=== PATIENT | male | born 1950 | race Caucasian/White ===

== ENCOUNTER 2017-06-01 21:15 | Observation (INO) | payer MEDICARE, OTHER ==
--- NOTE | 2017-06-01 21:37 | ERNOTE ---
Neuro HPI ER Record Presenting Symptoms: weakness, numbness - right arm since yesterday Time Seen by Provider: 06/01/17 21:19 Source: patient, family Exam Limitations: clinical condition Allergies/Adverse Reactions: Allergies Allergy/AdvReac Type Severity Reaction Status Date / Time ciprofloxacin [From Cipro] AdvReac Verified 06/01/17 21:22 metronidazole [From Flagyl] AdvReac Verified 06/01/17 21:22 Home Medications: HOME MEDICATIONS Aspirin [Aspirin EC] 243 mg PO HS 06/01/17 [Last Taken Unknown] Gabapentin [Neurontin] 1,200 mg PO TID 06/01/17 [Last Taken Unknown] Tiotropium [place] [Spiriva] 1 cap IH DAILY 06/01/17 [Last Taken Unknown] - History of Present Illness Narrative: Pt states that he was seen at the [facility] on the day before yesterday for spasm in his right hand. Since that time he states the right arm has become flaccid and intermittently begins shaking and contracts in flexion for approx 1 minute then stops suddenly. He states that while his right hand is shaking and manohar he is unable to move his left arm. Onset: gradual onset - over the past 3 days Severity: severe - Character of Deficits New weakness: Present: RUE Altered sensation: Present: RUE Additional Deficits: Present: decrease ability to stand, off balance. Absent: vision problems Baseline Cognition: Present: alert, oriented x 4 Baseline Gait: Present: walks w/o assistance Prior Treament: Reports: recently seen, treated by physician - At the [facility] in [place] on the day before yesterday Review of Systems - Review of Systems Constitutional: Absent: recent illness, fever, chills EYE: Present: no symptoms reported ENT: Present: no symptoms reported Respiratory: Present: no symptoms reported Cardiology: Present: no symptoms reported Gastrointestinal/Abdominal: Present: no symptoms reported Musculoskeletal: Present: muscle pain, muscle stiffness - right arm intermittantly Skin: Present: no symptoms reported Neurological: Present: See HPI, seizure - -like activity in his right arm Endocrine: Present: excessive sweating, increased thirst Hematologic/Lymphatic: Present: no symptoms reported Psych: Present: no symptoms reported - Patient's Past Medical History Patient History - Medical: Diabetes Type 2 Patient History - Cardiac/Respiratory: COPD - Family History Father Family History - Medical: , No pertinent hx Family History - Cardiac/Respiratory: Other Family History - Cancer: Other Physical Exam - Physical Exam General Appearance: Present: wd/wn, alert, mild distress Eye Exam: Normal inspection: bilateral, PERRL: bilateral Neck: Present: normal inspection, supple Respiratory: Present: no respiratory distress, normal breath sounds, lungs clear Cardiovascular/Chest: Present: regular rate, rhythm, no murmur Extremity Exam: Present: normal inspection, non-tender Neurological Exam: Present: alert, oriented, normal mood/affect, 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 II-XII nml as tested, motor weakness - right arm with anesthesia from shoulder , other - intermittant contracture and tremor of right arm that lasts 40-60 seconds at a time Skin Exam: Present: normal color, warm/dry [place] Coma Scale - Assess Eye Opening: Spontaneous Motor: Obeys Commands Verbal: Oriented - Total Coma Scale Total: 15 Initial Stroke Assessment - NIH Stroke Scale Level of Consciousness: Alert LOC Questions (Year and Age): Answers both correctly LOC Commands (open/close eyes/fist): Performs both correctly Lateral Gaze Paresis: None Visual Field Loss: No visual loss Facial Palsy: Normal movement Right Arm Motor (10 sec hold): No movement Left Arm Motor (10 sec hold): No drift ED Progress - Results and Orders Patient's Lab Results:: I have reviewed the patient's lab results. Results and Orders: Laboratory Tests 06/01/17 06/01/17 06/01/17 21:20 21:20 21:20 WBC 3.3 L Hgb 12.7 L Hct 34.8 L Plt Count 213 ESR 53 H Sodium 137 Potassium 4.6 Chloride 97 Carbon Dioxide 27.7 Anion Gap 16.9 H BUN 13 Creatinine 0.86 Est GFR (Non-Af Amer) 94 BUN/Creatinine Ratio 15.1 Random Glucose 691 H* Calcium 8.4 Total Bilirubin 1.2 H AST 24 ALT 35 Alkaline Phosphatase 106 Total Protein 5.5 L Albumin 3.1 L Urine Color Urine Appearance Urine pH Ur Specific [place] Urine Protein Urine Glucose (UA) Urine Ketones Urine Blood Urine Nitrate Urine Bilirubin Urine Urobilinogen Ur Leukocyte Esterase Urine RBC Urine WBC Ur Epithelial Cells Urine Bacteria Urine Culture Comments Urine Opiates Screen Barbiturate Screen Ur Phencyclidine Scrn Urine Amphetamine U Benzodiazepines Scrn Urine Cocaine Screen Urine Marijuana (THC) 06/01/17 06/01/17 21:45 21:59 WBC Hgb Hct Plt Count ESR Sodium Potassium Chloride Carbon Dioxide Anion Gap BUN Creatinine Est GFR (Non-Af Amer) BUN/Creatinine Ratio Random Glucose Calcium Total Bilirubin AST ALT Alkaline Phosphatase Total Protein Albumin Urine Color Yellow Urine Appearance Clear Urine pH 5.5 Ur Specific [place] 1.005 Urine Protein Negative Urine Glucose (UA) >=1000 H Urine Ketones 15 Urine Blood Negative Urine Nitrate Negative Urine Bilirubin Negative Urine Urobilinogen Normal Ur Leukocyte Esterase Negative Urine RBC None seen Urine WBC 0-5 Ur Epithelial Cells 0-5 Urine Bacteria None seen Urine Culture Comments No culture indicated Urine Opiates Screen Positive H Barbiturate Screen Negative Ur Phencyclidine Scrn Negative Urine Amphetamine Negative U Benzodiazepines Scrn Negative Urine Cocaine Screen Negative Urine Marijuana (THC) Positive H - Vital Signs Patient's Vital Signs:: I have reviewed the patient's vital signs. Vital Signs: Vital Signs 06/01/17 21:15 Temperature 36.8 C Pulse Rate 92 Respiratory 19 Rate Blood Pressure 158/94 O2 Sat by Pulse 97 Oximetry - EKG EKG: NSR EKG read: Interp. by me - X-Ray X-Ray #1 X-Ray: chest Interpretation: Interp. by me X-ray Comments: Nothing acute, no infiltrate or edema. - CT/Ultrasound CT/Ultrasound Narrative: motion artifact. Post. Subq metallic foreign bodies. mild atrophy and chronic white matter ischemic changes min. mucosal thickening b/l ethmoid air cells. - Progress/Reassessment Progress:: Improved Progress Note-Subjective: 06/02/17 01:30 spoke with Nena CONTRERASP hospitalist. She agrees with observation admission to watch glucose and arm strength. While talking to patient about admission. He began to use the right arm somewhat, lifting it up and even hitting himself on the forehead twice. Departure Clinical Impression: Uncontrolled type 2 DM with hyperosmolar nonketotic hyperglycemia, Right arm weakness - Departure Disposition: [facility] Condition: Stable
--- OUTSIDE RECORDS SUMMARY | 2017-06-01 21:40 | XMS REPORT | Continuity of Care Document ---
:1950 Author Organization [employer] [place] [address] Care Team Providers Name Role Phone Sumit Jax Guerin Primary Care Provider [phone] Source Comments This disclosure is being made pursuant to the [employer] ([employer]) program and maynot contain all information available regarding this patient.[employer] Active Allergies and Adverse Reactions Allergen Noted Date Severity Reactions Comments Ciprofloxacin 05/25/2017 High Hives Flagyl 05/25/2017 High Hives Shellfish Allergy 05/25/2017 High Anaphylaxis Current Medications Be aware that medications may not be up to date as of this document. Alwaysverify current medications with the patient. Prescription Sig. Disp. Refills Start Date End Date Status gabapentin Take 2 180 tablet 2 05/26/2017 Active (NEURONTIN) 600 MG tablets by tablet mouth 3 (three) times daily. tiotropium Place 1 30 capsule 2 05/26/2017 Active (SPIRIVA) 18 MCG capsule into inhalation capsule inhaler and inhale daily. Inhale 1 capsule via inhaler by mouth every day (use with inhaler, do not swallow capsule). gabapentin Take 600 mg 05/25/2017 Discontinued (NEURONTIN) 600 MG by mouth 3 tablet (three) times daily. tiotropium Inhale 1 05/25/2017 Discontinued (SPIRIVA) 18 MCG capsule via inhalation capsule inhaler by mouth every day (use with inhaler, do not swallow capsule). tiotropium Place 1 30 capsule 2 05/25/2017 05/26/2017 Discontinued (SPIRIVA) 18 MCG capsule into inhalation capsule inhaler and inhale daily. Inhale 1 capsule via inhaler by mouth every day (use with inhaler, do not swallow capsule). gabapentin Take 2 180 tablet 2 05/25/2017 05/26/2017 Discontinued (NEURONTIN) 600 MG tablets by tablet mouth 3 (three) times daily. 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2 C (97.2 F) 05/25/2017 2:11 PM CDT Respiratory Rate - - Height 1.88 m (6' 2") 05/25/2017 2:11 PM CDT Weight 118.389 kg (261 lb) 05/25/2017 2:11 PM CDT Body Mass Index 33.5 05/25/2017 2:11 PM CDT Oxygen Saturation 92% 05/25/2017 2:11 PM CDT Plan of Care Health Maintenance Due Date Last Done Comments Hepatitis C Screening 1968 Tetanus/Pertussis (1 - Tdap) 1969 Colonoscopy 2000 Well Adult Visit 2000 Zoster Vaccine 60+ 2010 AAA Screening (Medicare Covered) 2015 Pneumococcal Low/Medium Risk 65+ (1 of 2 - PCV13) 2015 Influenza Immunization (#1) 2016 Results from Last 3 Months Not on file Insurance Payer Benefit Plan / Group Subscriber ID Type Phone Address [place] [employer] PROGRAM [id number] [address] [place] [address] MEDICARE MEDICARE A AND B [id number] [id number] [address] [place] [address]
[2017-06-01 21:58] LABS: Hematocrit 34.8 % (42.0-52.0); Hemoglobin 12.7 gm/dL (13.5-18.0); Mean Cell Volume 91.6 fl (78-100); Mean Corpuscular Hemoglobin 33.4 pg (27-31); Mean Corpuscular Hgb Conc 36.5 g/dl (32-36); Mean Platelet Volume 10.6 fl (6.0-9.5); Neutrophil # 1.7 K/mm3 (1.3-6.0); Platelet Count 213 K/mm3 (150-450); Red Cell Distribution Width 13.6 % (11.5-14.0); White Blood Count 3.3 K/mm3 (4.0-10.5)
[2017-06-01 22:06] LABS: Urine Appearance Clear; Urine Bilirubin Negative (NEGATIVE); Urine Blood Negative /ul (NEGATIVE); Urine Color Yellow
[2017-06-01 22:07] LABS: Urine Bacteria None Seen; Urine Ketone 15 mg/dL (NEGATIVE); Urine Nitrite Negative (NEGATIVE); Urine Protein Negative (NEGATIVE); Urine RBC None Seen /hpf (0-5); Urine Specific Gravity 1.005 SP.GR. (1.005-1.030); Urine Urobilinogen Normal (NORMAL); Urine WBC 0-5 /hpf (0-5); Urine pH 5.5 pH (5.0-7.0)
[2017-06-01 22:14] LABS: Cocaine Ur Negative (NEGATIVE); Urine Barbiturate Negative (NEGATIVE); Urine Benzodiazepines Negative (NEGATIVE); Urine PCP Negative (NEGATIVE)
[2017-06-01 22:34] LABS: Urine Opiates Positive (NEGATIVE); Urine THC Positive (NEGATIVE)
[2017-06-01 23:09] LABS: BUN/Creatinine Ratio 15.1 (9.0-21.6); Potassium 4.6 mmol/L (3.4-4.6)
[2017-06-01 23:10] LABS: Albumin * 3.1 gm/dl (3.4-5.0); Anion Gap 16.9 mmol/L (6.8-13.8); Bilirubin, Total 1.2 mg/dL (0.0-1.1); Ca. Corrected For Albumin 8.8 mg/dL (8.4-10.2); Calcium * 8.4 mg/dL (7.9-10.9); Carbon Dioxide 27.7 mmol/L (24-32.6); Total Protein 5.5 gm/dL (6.2-8.2)
--- OUTSIDE RECORDS SUMMARY | 2017-06-02 01:52 | XMS REPORT | Continuity of Care Document ---
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
[2017-06-02] MEDS ORDERED: 0.5 NORMAL SALINE 1,000 ML IV PRN ×2 (03:17→03:38)
--- NOTE | 2017-06-02 03:42 | HP ---
Chief Complaint - Chief Complaint Date of Service: 06/02/17 Time of Service: 03:15 Chief Complaint: right arm weakness, Diabetes type 2 with hyperglycemia. History of Present Illness: Andi is a 67 year old male patient of the [facility] with a PMH of non-compliant Diabetes type 2, diabetic neuropathy, history of FL with prior angiogram (no intervention per patient) that presented to the ER tonight with c/o right arm numbness and weakness x 1 week and frequent falls. States 1 week ago he developed right wrist pain. Over the course of the last week, the right wrist pain progressed and has started to move up his right arm. In the last 3 days, patient states he has started to have frequent, uncontrollable and painful right arm spasms. The patient also fell 3 days ago and hit right shoulder. This prompted him to present to the [facility] emergency room 3 days ago for evaluation. Per patient, his blood sugar was elevated at 700 at the [facility] ER and he was released with scripts for his diabetic medications. However, patient states to me that he has not taken any of his diabetic medications for the past 2 years, since his . states he does not want to take metformin as it makes his feet swell. In addition, patient directly states to me that [facility] 2600 [facility] of gab[facility]entin but he is still taking the previously ordered dose of 3600 mg a day as he feels it does a better job. When the patient has right arm spasms, he denies LOC and is able to converse during the episodes. He also denies any s/s of post-ictal states after the right arm spasms - either here or outside of the hospital. Today, the patient states he has felt very off balance and the right arm spasms have increased in intensity and frequency. This prompted evaluation at [facility] ER. ER evaluation revealed non acute head CT, serum glucose 691, anion gap high at 16.9, EKG showing NSR with no acute st-t wave changes, and non acute chest xray. Patient to be admitted for hyperglycemia and right arm pain / spasms. - Patient's Past Medical History Patient History - Medical: Diabetes Type 2 Patient History - Cardiac/Respiratory: COPD, Myocardial Infarction Patient History - Cancer: No Hx of Cancer Patient History - Surgical Procedures: Total Knee Replacement, Other - angiogram Patient History - Other: None - Family History Father Family History - Medical: , No pertinent hx Family History - Cardiac/Respiratory: Other Family History - Cancer: Other - Social History Living Situations: alone Psych History: Hx of Anxiety, Hx of Depression Smoking Status: Former smoker Have you smoked in the past 12 months: No Alcohol Use: none Drug Use: marijuana - Immunizations Immunizations Up to Date: No - UNK Hx Pneumococcal Vaccination: Yes History of Influenza Vaccine: No Review Of Systems (GEN) - Review of Systems Generalized/Overall Review: Absent: Chills, Fever EENTM: Present: No Symptoms Reported Respiratory: Present: No Symptoms Reported Cardiac: Present: No Symptoms Reported Abdominal: Present: No Symptoms Reported Genitourinary: Present: No Symptoms Reported Musculoskeletal: Present: Muscle Pain, Other - right arm spasms / right arm muscle contractures (intermittent) Neurological: Present: Anxiety, Depressed, Emotional Problems, Numbness, Weakness, Other - intermittent right arm spasms Skin: Present: No Symptoms Reported Endocrine: Present: Excessive Sweating, Increased Thirst Misc: All systems neg except as marked Allergies/Adverse Reactions: Allergies Allergy/AdvReac Type Severity Reaction Status Date / Time ciprofloxacin [From Cipro] AdvReac Verified 06/01/17 21:22 metronidazole [From Flagyl] AdvReac Verified 06/01/17 21:22 Home Medications: HOME MEDICATIONS Aspirin [Aspirin EC] 243 mg PO HS 06/01/17 [Last Taken Unknown] Gabapentin [Neurontin] 1,200 mg PO TID 06/01/17 [Last Taken Unknown] Tiotropium [place] [Spiriva] 1 cap IH DAILY 06/01/17 [Last Taken Unknown] Exam - Exam Vital Signs: Vital Signs - Last Taken Temp 36.3 C L 06/02/17 02:16 Pulse 83 06/02/17 02:16 Resp 18 06/02/17 02:16 BP 152/88 06/02/17 02:16 Pulse Ox 97 06/02/17 02:16 Constitutional: Present: Alert, Oriented x3, Cooperative, No distress, Obese, Looks Older than stated age ENT Exam: Present: hearing grossly normal Eye Exam: bilateral eye: normal inspection, PERRL Neck: Present: supple, normal inspection Breasts: Present: Exam deferred Respiratory: Present: chest non-tender, lungs clear, normal breath sounds, no respiratory distress, no accessory muscle use Cardiovascular/Chest: Present: normal peripheral pulses, regular rate, rhythm, no chest tenderness, no murmur Abdomen: Present: Normal bowel sounds, soft, nontender, nondistended /Rectal: Present: Exam deferred Extremity: Present: normal inspection, no calf tenderness Skin Exam: Present: warm/dry, no cyanosis Neurologic: Present: 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 However sensation returns once the right arm spasm is over. Appearance: Present: disheveled Eye contact: Present: good eye contact, increased rate of speech Diagnostic Studies: Abnormal Lab Results 06/02/17 Range/Units 02:47 Total CO2 25.1 H (19.0-24.0) mmol/L Laboratory Results WBC 3.3 K/mm3 (4.0-10.5) L 06/01/17 21:20 RBC 3.80 M/mm3 (4.7-6.0) L 06/01/17 21:20 Hgb 12.7 gm/dL (13.5-18.0) L 06/01/17 21:20 Hct 34.8 % (42.0-52.0) L 06/01/17 21:20 MCV 91.6 fl (78-100) 06/01/17 21:20 MCH 33.4 pg (27-31) H 06/01/17 21:20 MCHC 36.5 g/dl (32-36) H 06/01/17 21:20 RDW 13.6 % (11.5-14.0) 06/01/17 21:20 Plt Count 213 K/mm3 (150-450) 06/01/17 21:20 MPV 10.6 fl (6.0-9.5) H 06/01/17 21:20 Immature Gran % (Auto) 0.60 % (0.001-0.429) H 06/01/17 21:20 Immature Gran # (Auto) 0.02 K/mm3 (0.000-0.0310) 06/01/17 21:20 Neutrophils % 51.0 % (42-75.0) 06/01/17 21:20 Lymphocytes % 32.2 % (20-51) 06/01/17 21:20 Monocytes % 12.3 % (0.0-9) H 06/01/17 21:20 Eosinophils % 3.0 % (0.0-3.0) 06/01/17 21:20 Basophils % 0.9 % (0.0-1.0) 06/01/17 21:20 Nucleated RBC % 0.0 k/mm3 (0-1) 06/01/17 21:20 Neutrophils # 1.7 K/mm3 (1.3-6.0) 06/01/17 21:20 Lymphocytes # 1.1 k/mm3 (1.5-3.5) L 06/01/17 21:20 Monocytes # 0.4 k/mm3 (0.0-1.0) 06/01/17 21:20 Eosinophils # 0.1 k/mm3 (0.0-0.7) 06/01/17 21:20 Absolute Basophils 0.0 k/mm3 (0.0-0.1) 06/01/17 21:20 ESR 53 mm/hr (0-10) H 06/01/17 21:20 pCO2 36.8 mmHg (35.0-48.0) 06/02/17 02:47 pO2 84.9 mmHg (83.0-108.0) 06/02/17 02:47 HCO3 23.9 mmol/L (21.0-28.0) 06/02/17 02:47 Total CO2 25.1 mmol/L (19.0-24.0) H 06/02/17 02:47 Base Excess -0.1 mmol/L (-2.0-3.0) 06/02/17 02:47 ABG pH 7.43 (7.35-7.45) 06/02/17 02:47 ABG O2 Sat (Measured) 96.7 % (94.0-98.0) 06/02/17 02:47 VBG pH 7.422 (7.32-7.43) 06/02/17 00:47 Sodium 137 mmol/L (132-142) 06/01/17 21:20 Plasma Sodium 146 mmol/L (130-142) H 06/01/17 21:20 Potassium 4.6 mmol/L (3.4-4.6) 06/01/17 21:20 Chloride 97 mmol/L (97-106) 06/01/17 21:20 Carbon Dioxide 27.7 mmol/L (24-32.6) 06/01/17 21:20 Anion Gap 16.9 mmol/L (6.8-13.8) H 06/01/17 21:20 BUN 13 mg/dL (6-23) 06/01/17 21:20 Creatinine 0.86 mg/dL (0.4-1.4) 06/01/17 21:20 Est GFR (Non-Af Amer) 94 mL/min (60-130) 06/01/17 21:20 BUN/Creatinine Ratio 15.1 (9.0-21.6) 06/01/17 21:20 Random Glucose 691 mg/dL (70-110) H* 06/01/17 21:20 Calcium 8.4 mg/dL (7.9-10.9) 06/01/17 21:20 Calcium Adj for Albumin 8.8 mg/dL (8.4-10.2) 06/01/17 21:20 Total Bilirubin 1.2 mg/dL (0.0-1.1) H 06/01/17 21:20 AST 24 U/L (0-48) 06/01/17 21:20 ALT 35 U/L (19-67) 06/01/17 21:20 Alkaline Phosphatase 106 U/L (50-170) 06/01/17 21:20 Total Protein 5.5 gm/dL (6.2-8.2) L 06/01/17 21:20 Albumin 3.1 gm/dl (3.4-5.0) L 06/01/17 21:20 Urine Color Yellow 06/01/17 21:59 Urine Appearance Clear 06/01/17 21:59 Urine pH 5.5 pH (5.0-7.0) 06/01/17 21:59 Ur Specific [place] 1.005 SP.GR. (1.005-1.030) 06/01/17 21:59 Urine Protein Negative mg/dL (NEGATIVE) 06/01/17 21:59 Urine Glucose (UA) >=1000 mg/dL (NEGATIVE) H 06/01/17 21:59 Urine Ketones 15 mg/dL (NEGATIVE) 06/01/17 21:59 Urine Blood Negative /ul (NEGATIVE) 06/01/17 21:59 Urine Nitrate Negative (NEGATIVE) 06/01/17 21:59 Urine Bilirubin Negative mg/dl (NEGATIVE) 06/01/17 21:59 Urine Urobilinogen Normal EU/dl (NORMAL) 06/01/17 21:59 Ur Leukocyte Esterase Negative /ul (NEGATIVE) 06/01/17 21:59 Urine RBC None seen /hpf (0-5) 06/01/17 21:59 Urine WBC 0-5 /hpf (0-5) 06/01/17 21:59 Ur Epithelial Cells 0-5 /hpf (0-5) 06/01/17 21:59 Urine Bacteria None seen (NONE) 06/01/17 21:59 Urine Culture Comments No culture indicated 06/01/17 21:59 Urine Opiates Screen Positive (NEGATIVE) H 06/01/17 21:45 Barbiturate Screen Negative (NEGATIVE) 06/01/17 21:45 Ur Phencyclidine Scrn Negative (NEGATIVE) 06/01/17 21:45 Urine Amphetamine Negative (NEGATIVE) 06/01/17 21:45 U Benzodiazepines Scrn Negative (NEGATIVE) 06/01/17 21:45 Urine Cocaine Screen Negative (NEGATIVE) 06/01/17 21:45 Urine Marijuana (THC) Positive (NEGATIVE) H 06/01/17 21:45 Assessment/Plan - Narrative Narrative: Uncontrolled type 2 diabetes with hyperosmolar nonketotic hyperglycemia - serum osmolarity calculated at 335 - hydrate with IVF - 1/2NS given elevated Na+ - per recyclable materials collector, patient's blood drawn contained a high amount of fat - thus some tests that could not be diluted were unable to be done in the ER because of this. - ie: unable to obtain serum ketones due to this as high fat content can skew the results but urine ketones negative. - check ABG - Start levamier - dose at 0.1 to 0.2 units / kg / day - start 15 units daily given obesity - accu-check achs with moderate sliding scale as needed. - recheck labs in am. - ? start glyburide - patient has taken this in the past and tolerated - patient unlikely to take metformin due to side effects. - needs close follow up with pcp. Right arm weakness - unclear etiology, - ? seizure like vs muscle spasms vs other neurological condition ? - given recent fall with injury to right shoulder, per pt, check right shoulder xray as a precaution - head ct is non acute - check ck levels as these would be elevated if his right arm spasms were due to a true seizure - patient is VERY inconsistent with history behind and current symptoms of right arm - states to me that he cannot move right arm at all, however both ERP and floor RN have seen patient move right arm. - [facility] - will likely need outpatient follow up with neurologist non-compliance - recently moved to the area 3 months ago - per floor RN, patient has seen providers in [place] and other nearby areas since his arrival here but has yet to establish with a pcp for ongoing treatment. - unsure if [facility] [place] - per patient, non compliance is due to depression after of 2 years ago - ? anti-depressant. depression - openly admits to being depressed but is on no treatment - ? start antidepressant - would likely benefit from outpatient treatment of depression, both medication and counseling, if patient is willing. Code Status: DNR VTE: lovenox gi proph: protonix po. - Assessment/Plan (1) Uncontrolled type 2 DM with hyperosmolar nonketotic hyperglycemia Problem: Acute (2) Right arm weakness Problem: Acute (3) Non compliance w medication regimen Problem: Acute (4) Depression Problem: Acute
[2017-06-02] MEDS ORDERED: ASPIRIN 81 MG TABLET.DR PO SCH (03:45)
[2017-06-02] MEDS: INSULIN DETEMIR 100 UNITS/ML VIAL SC SCH ×4 (03:54→21:21)
[2017-06-02 06:44] LABS: Hematocrit 34.5 % (42.0-52.0); Hemoglobin 12.1 gm/dL (13.5-18.0); Mean Cell Volume 91.8 fl (78-100); Mean Corpuscular Hemoglobin 32.2 pg (27-31); Mean Corpuscular Hgb Conc 35.1 g/dl (32-36); Mean Platelet Volume 10.1 fl (6.0-9.5); Neutrophil # 2.1 K/mm3 (1.3-6.0); Neutrophil % 52.3 % (42-75.0); Platelet Count 182 K/mm3 (150-450); Red Blood Count 3.76 M/mm3 (4.7-6.0); Red Cell Distribution Width 13.6 % (11.5-14.0); White Blood Count 4.1 K/mm3 (4.0-10.5)
[2017-06-02] MEDS: PANTOPRAZOLE SODIUM 40 MG TABLET.EC PO SCH (07:02)
[2017-06-02] MEDS: INSULIN LISPRO 100 UNITS/ML VIAL SC SCH ×4 (07:02→21:21)
[2017-06-02 07:10] LABS: Anion Gap 6.3 mmol/L (6.8-13.8); BUN/Creatinine Ratio 12.9 (9.0-21.6); CKMB 1.5 ng/mL (0.0-9.0); Carbon Dioxide 28.3 mmol/L (24-32.6); Estimated Creat Clear 119.1; Potassium 3.6 mmol/L (3.4-4.6)
[2017-06-02] MEDS ORDERED: GABAPENTIN 300 MG CAPSULE PO SCH (09:00)
[2017-06-02] MEDS: NORMAL SALINE 1,000 ML IV PRN ×2 (09:22→16:04)
[2017-06-02] MEDS: TIOTROPIUM BROMIDE 5 CAP INHALER IH SCH (09:23)
[2017-06-02] MEDS: GABAPENTIN 600 MG TABLET PO SCH ×3 (09:24→16:11)
[2017-06-02] MEDS: ASPIRIN 81 MG TABLET.DR PO SCH (09:25)
[2017-06-02] MEDS: SERTRALINE HCL 50 MG TABLET PO SCH (09:25)
[2017-06-02] MEDS: ENOXAPARIN SODIUM 40 MG/0.4 ML SYRG SC SCH (09:25)
[2017-06-02] MEDS ORDERED: GLIMEPIRIDE 4 MG TABLET PO SCH (09:30)
[2017-06-02] MEDS: GLIMEPIRIDE 4 MG TABLET PO SCH ×2 (09:57→16:11)
[2017-06-02 14:33] LABS: Hemoglobin A1C 14.5 % (4.00-6.0)
[2017-06-02 14:48] LABS: Anion Gap 11.5 mmol/L (6.8-13.8); BUN/Creatinine Ratio 12.9 (9.0-21.6); Calcium * 8.3 mg/dL (7.9-10.9); Carbon Dioxide 26.3 mmol/L (24-32.6); Estimated Creat Clear 119.1; Potassium 3.8 mmol/L (3.4-4.6)
[2017-06-02] MEDS ORDERED: ROSUVASTATIN CALCIUM 20 MG TABLET PO SCH (21:00)
[2017-06-03] MEDS: ACETAMINOPHEN 325 MG TABLET PO PRN ×2 (05:54)
[2017-06-03 06:33] LABS: Albumin * 2.4 gm/dl (3.4-5.0); Anion Gap 10.5 mmol/L (6.8-13.8); BUN/Creatinine Ratio 10.5 (9.0-21.6); Bilirubin Direct 0.1 mg/dL (0.0-0.3); Bilirubin, Total 0.3 mg/dL (0.0-1.1); Bilirubin,Indirect 0.2 mg/dL (0.1-0.7); Calcium * 8.4 mg/dL (7.9-10.9); Chol/HDL Risk Ratio 9.1 mg/dL (3.3-5.0); Estimated Creat Clear 146.2; Potassium 3.5 mmol/L (3.4-4.6); Total Protein 5.6 gm/dL (6.2-8.2)
[2017-06-03] MEDS: GLIMEPIRIDE 4 MG TABLET PO SCH ×2 (06:55→17:12)
[2017-06-03] MEDS: PANTOPRAZOLE SODIUM 40 MG TABLET.EC PO SCH (06:55)
[2017-06-03] MEDS: INSULIN LISPRO 100 UNITS/ML VIAL SC SCH ×3 (07:00→17:12)
[2017-06-03] MEDS: ASPIRIN 81 MG TABLET.DR PO SCH (09:23)
[2017-06-03] MEDS: GABAPENTIN 600 MG TABLET PO SCH ×3 (09:23→17:12)
[2017-06-03] MEDS: SERTRALINE HCL 50 MG TABLET PO SCH (09:24)
[2017-06-03] MEDS: ENOXAPARIN SODIUM 40 MG/0.4 ML SYRG SC SCH (09:24)
[2017-06-03] MEDS: TIOTROPIUM BROMIDE 5 CAP INHALER IH SCH (09:24)
[2017-06-03] MEDS: INSULIN DETEMIR 100 UNITS/ML VIAL SC SCH (09:32)
--- NOTE | 2017-06-03 13:01 | DS ---
(1) Uncontrolled type 2 DM with hyperosmolar nonketotic hyperglycemia Problem: Acute (2) Hemiballism Problem: Acute (3) Depression Problem: Chronic Qualifiers: Depression Type: major depressive disorder Major depression recurrence: single episode Active/Remission status: currently active Major depression episode severity: moderate Qualified Code(s): F32.1 - Major depressive disorder, single episode, moderate (4) Non compliance w medication regimen Problem: Chronic Description of Stay: ADMISSION DATE: 06/02/2017 DISCHARGE DATE: 06/03/2017 ADMISSION HPI BY LOYD YOUNG: Andi is a 67 year old male patient of the [place] with a PMH of non-compliant Diabetes type 2, diabetic neuropathy, history of VT with prior angiogram (no intervention per patient) that presented to the ER tonight with c/o right arm numbness and weakness x 1 week and frequent falls. States 1 week ago he developed right wrist pain. Over the course of the last week, the right wrist pain progressed and has started to move up his right arm. In the last 3 days, patient states he has started to have frequent, uncontrollable and painful right arm spasms. The patient also fell 3 days ago and hit right shoulder. This prompted him to present to the [place] emergency room 3 days ago for evaluation. Per patient, his blood sugar was elevated at 700 at the [place] ER and he was released with scripts for his diabetic medications. However, patient states to me that he has not taken any of his diabetic medications for the past 2 years, since his . states he does not want to take metformin as it makes his feet swell. In addition, patient directly states to me that [facility] 2600 mg of gabapentin but he is still taking the previously ordered dose of 3600 mg a day as he feels it does a better job. When the patient has right arm spasms, he denies LOC and is able to converse during the episodes. He also denies any s/s of post-ictal states after the right arm spasms - either here or outside of the hospital. Today, the patient states he has felt very off balance and the right arm spasms have increased in intensity and frequency. This prompted evaluation at [facility] ER. ER evaluation revealed non acute head CT, serum glucose 691, anion gap high at 16.9, EKG showing NSR with no acute st-t wave changes, and non acute chest xray. Patient to be admitted for hyperglycemia and right arm pain / spasms. 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 The patient is unable to have a brain MRI secondary to having multiple BBs in his head. The patient also admits to as well as displays signs and symptoms of fairly profound depression. The patient would benefit from outpatient therapy and/or ongoing evaluation and management by psychiatry. For now, the patient is agreeable to starting an antidepressant and I started him on Citalopram 20mg PO daily. The patient was informed that it can take anywhere from 2-4 weeks before noticing any changes. A1c markedly elevated at 14.5%. Continue home dose of insulin as [facility]. Start glimepiride 4 mg PO BID with meals. The patient is not on metformin as he feels this caused swelling in his lower extremities. I discussed with the patient the importance of getting his diabetes under control and he met with our dietitian/inclusion paraeducator during his hospital stay. The patient was discharged home in stable condition and instructed on the importance of keeping his [facility]. FOLLOW-UP APPOINTMENTS: -PCP, Dr. De Guzman at the [facility] in [place], [place] NEW HOME MEDICATION LIST ON DISCHARGE: Gabapentin 600mg PO TID Lantus 30 Units SC HS Glimepiride 4mg PO BIDAC Citalopram 20mg PO daily Atorvastatin 80mg PO HS Aspirin 325mg PO daily RADIOLOGY REPORTS: Chest x-ray on 06/01/2017 showed: No focal consolidation. Left basilar linear atelectasis versus scar. Head CT without contrast on 06/01/2017 showed: There are streak artifact related to subcutaneous radiodense foreign bodies at the level of the left occipital bone. Additionally, there is patient motion artifact degrading this exam. Age-related cortical atrophy with symmetric expansion of the CSF containing spaces. No evidence of ventriculomegaly. There are changes from chronic microvascular ischemic white matter disease. No acute intracranial hemorrhage. No midline shift or herniation. No mass or mass effect. The cortical john/white matter differentiation is grossly intact. Benign intracranial calcifications noted. Atherosclerotic changes noted. There is ethmoid air cell mucosal thickening. The remaining visualized pneumatized portions of the skull are clear. The osseous and soft tissues are unremarkable. OVERALL IMPRESSION: No acute intracranial hemorrhage or mass effect. Right shoulder x-ray on 06/02/2017 showed: The acromioclavicular joint appears to be maintained. The clavicle appears intact and is not elevated. Visualized scapula appears intact on this portable study. The glenohumeral joint is maintained and I do not see evidence for dislocation. The proximal humerus is intact. There is clinical concern for internal derangement, follow-up MRI is recommended. The visualized lung field is clear. OVERALL IMPRESSION: No acute osseous abnormality identified on this portable examination. Procedures Performed: none Results and Findings: Laboratory Tests 06/01/17 06/01/17 06/01/17 21:20 21:20 21:45 WBC 3.3 L RBC 3.80 L Hgb 12.7 L Hct 34.8 L MCV 91.6 MCH 33.4 H MCHC 36.5 H RDW 13.6 Plt Count 213 ESR 53 H pCO2 pO2 HCO3 Total CO2 Base Excess ABG pH ABG O2 Sat (Measured) VBG pH Sodium Plasma Sodium Potassium Chloride Carbon Dioxide Anion Gap BUN Creatinine Est GFR (Non-Af Amer) BUN/Creatinine Ratio Random Glucose Hemoglobin A1c Calcium Total Bilirubin Direct Bilirubin Indirect Bilirubin AST ALT Alkaline Phosphatase Creatine Kinase CK-MB (CK-2) Total Protein Albumin Triglycerides Cholesterol LDL Cholesterol VLDL Cholesterol HDL Cholesterol Cholesterol/HDL Ratio Urine Glucose (UA) Urine Opiates Screen Positive H Barbiturate Screen Negative Ur Phencyclidine Scrn Negative Urine Amphetamine Negative U Benzodiazepines Scrn Negative Urine Cocaine Screen Negative Urine Marijuana (THC) Positive H 06/01/17 06/02/17 06/02/17 21:59 00:47 02:47 WBC RBC Hgb Hct MCV MCH MCHC RDW Plt Count ESR pCO2 36.8 pO2 84.9 HCO3 23.9 Total CO2 25.1 H Base Excess -0.1 ABG pH 7.43 ABG O2 Sat (Measured) 96.7 VBG pH 7.422 Sodium Plasma Sodium Potassium Chloride Carbon Dioxide Anion Gap BUN Creatinine Est GFR (Non-Af Amer) BUN/Creatinine Ratio Random Glucose Hemoglobin A1c Calcium Total Bilirubin Direct Bilirubin Indirect Bilirubin AST ALT Alkaline Phosphatase Creatine Kinase CK-MB (CK-2) Total Protein Albumin Triglycerides Cholesterol LDL Cholesterol VLDL Cholesterol HDL Cholesterol Cholesterol/HDL Ratio Urine Glucose (UA) >=1000 H Urine Opiates Screen Barbiturate Screen Ur Phencyclidine Scrn Urine Amphetamine U Benzodiazepines Scrn Urine Cocaine Screen Urine Marijuana (THC) 06/02/17 06/02/17 06/02/17 06:35 06:35 13:15 WBC 4.1 D RBC 3.76 L Hgb 12.1 L Hct 34.5 L MCV 91.8 MCH 32.2 H MCHC 35.1 RDW 13.6 Plt Count 182 ESR pCO2 pO2 HCO3 Total CO2 Base Excess ABG pH ABG O2 Sat (Measured) VBG pH Sodium Plasma Sodium Potassium Chloride Carbon Dioxide Anion Gap BUN Creatinine Est GFR (Non-Af Amer) BUN/Creatinine Ratio Random Glucose Hemoglobin A1c 14.5 H Calcium Total Bilirubin Direct Bilirubin Indirect Bilirubin AST ALT Alkaline Phosphatase Creatine Kinase 51 CK-MB (CK-2) 1.5 Total Protein Albumin Triglycerides Cholesterol LDL Cholesterol VLDL Cholesterol HDL Cholesterol Cholesterol/HDL Ratio Urine Glucose (UA) Urine Opiates Screen Barbiturate Screen Ur Phencyclidine Scrn Urine Amphetamine U Benzodiazepines Scrn Urine Cocaine Screen Urine Marijuana (THC) 06/03/17 05:53 WBC RBC Hgb Hct MCV MCH MCHC RDW Plt Count ESR pCO2 pO2 HCO3 Total CO2 Base Excess ABG pH ABG O2 Sat (Measured) VBG pH Sodium 137 Plasma Sodium 139 Potassium 3.5 Chloride 102 Carbon Dioxide 28.0 Anion Gap 10.5 BUN 6 Creatinine 0.57 Est GFR (Non-Af Amer) 152 H D BUN/Creatinine Ratio 10.5 Random Glucose 219 H Hemoglobin A1c Calcium 8.4 Total Bilirubin 0.3 Direct Bilirubin 0.1 Indirect Bilirubin 0.2 AST 29 ALT 37 Alkaline Phosphatase 92 Creatine Kinase CK-MB (CK-2) Total Protein 5.6 L Albumin 2.4 L Triglycerides 1584 H Cholesterol 374 H LDL Cholesterol 16 L VLDL Cholesterol 317 H HDL Cholesterol 41 Cholesterol/HDL Ratio 9.1 H Urine Glucose (UA) Urine Opiates Screen Barbiturate Screen Ur Phencyclidine Scrn Urine Amphetamine U Benzodiazepines Scrn Urine Cocaine Screen Urine Marijuana (THC) Discharge Disposition: Home self care Disposition: Home self-care Condition: Stable Discharge Activity: Activity as tolerated Discharge Diet: Consistent carbs - Diabetic diet as discussed with our dietitian /inclusion paraeducator Problem Oriented Discharge Instructions to Patient/Family: Insulin Storage and Care, Insulin Treatment for Diabetes, Diabetes and Foot Care, Tips for Eating Away From Home If You Have Diabetes, Urine Ketone Test, Diabetes and Standards of Medical Care, Diabetes and Exercise-SportsMed, Form - Daily Diabetes Record, Diabetes and Sick Day Management, Diabetic Nephropathy, Diabetic Ketoacidosis, Hyperglycemia, Hemoglobin A1c Test, Hyperglycemia, [id number], Diabetic Neuropathy, How to Avoid Diabetes Problems, Type 2 Diabetes Mellitus, Adult, Omce-as-[id number], Blood Glucose Monitoring, Adult, Screening for Type 2 Diabetes, Insulin Resistance, Diabetes and Exercise, Diabetes Mellitus and Food Additional Patient Instructions (free text): Follow up appointment with Dr De Guzman at [facility] in [place], [place] 06/08 at 11: 30. DO NOT MISS THIS APPOINTMENT. Fax H&P, D/C Summary, D/C med list and labs to [phone]. Complete Home Medications List: Complete Home Medication List: Gabapentin [Neurontin] 600 mg PO TID 06/03/17 Insulin Glargine,Hum.rec.anlog [Lantus] 30 units SC HS 06/03/17 Aspirin [Aspirin EC] 243 mg PO HS 06/04/17
[2017-06-03 15:50] VITALS: BP 127/82
== END 2017-06-03 19:15 | disposition home or self-care (01) ==
LOC: ER 21:15 → MS 06-02 01:42
PROVIDERS: ADMIT Nurse Practitioner Critical Care Medicine; ATTEND Internal Medicine
DX: E11.00 Type 2 diabetes mellitus with hyperosmolarity without nonketotic hyperglycemic-hyperosmolar coma (NKHHC) (principal); R53.1 Weakness; E11.40 Type 2 diabetes mellitus with diabetic neuropathy, unspecified; G25.5 Other chorea; J44.9 Chronic obstructive pulmonary disease, unspecified; Z87.891 Personal history of nicotine dependence; T38.3X6A Underdosing of insulin and oral hypoglycemic [antidiabetic] drugs, initial encounter; Z91.128 Patient's intentional underdosing of medication regimen for other reason; F32.1 Major depressive disorder, single episode, moderate
CPT/HCPCS: 36415; 36600; 70450; 71010; 73030; 80048; 80053; 80061; 80076; 80307; 81001; 82550; 82553; 82800; 82803; 83036; 85025; 85652; 93005; 96372; 97110; 97112; 97116; 97162; 97166; 97530; 97535; 99284; G0378; G8978; G8979; G8980

== ENCOUNTER 2017-06-04 10:29 | Inpatient (IN) | payer MEDICARE, OTHER ==
--- OUTSIDE RECORDS SUMMARY | 2017-06-04 11:22 | XMS REPORT | Continuity of Care Document ---
:1950 Author Organization [employer] [place] [address] Care Team Providers Name Role Phone Sumit Jax Guerin Primary Care Provider [phone] Source Comments This disclosure is being made pursuant to the [employer] [facility] program and maynot contain all information available regarding this patient.[employer] Active Allergies and Adverse Reactions Allergen Noted [...] RMA 05/26/2017 Telephone Family Medicine Hannah Nj chief of internal medicine 05/26/2017 Refill Family Medicine Mayr Lopez Polyneuropathy (HCC) L, NP (Primary Dx); Chronic obstructive pulmonary disease, unspecified [...] 2 - PCV13) 2015 Influenza Immunization (#1) 2017 Results from Last 3 Months Not on file Insurance Payer Benefit Plan / Group Subscriber ID Type Phone Address [place] [employer] [id number] [address] [place] [address] MEDICARE MEDICARE A AND B [id number] [phone] [address] [place] [address]
[2017-06-04 11:29] LABS: Hematocrit 35.2 % (42.0-52.0); Hemoglobin 11.9 gm/dL (13.5-18.0); Mean Cell Volume 92.1 fl (78-100); Mean Corpuscular Hemoglobin 31.2 pg (27-31); Mean Corpuscular Hgb Conc 33.8 g/dl (32-36); Mean Platelet Volume 9.5 fl (6.0-9.5); Neutrophil # 2.7 K/mm3 (1.3-6.0); Neutrophil % 64.5 % (42-75.0); Platelet Count 202 K/mm3 (150-450); Red Blood Count 3.82 M/mm3 (4.7-6.0); Red Cell Distribution Width 14.2 % (11.5-14.0); White Blood Count 4.2 K/mm3 (4.0-10.5)
--- NOTE | 2017-06-04 11:29 | ERNOTE ---
Neuro HPI ER Record Presenting Symptoms: other Time Seen by Provider: 06/04/17 11:03 Source: patient Exam Limitations: no limitations Immunizations: IMMUNIZATION HX Immunizations Up to Date No History of Influenza Vaccine No Hx Pneumococcal Vaccination Yes Allergies/Adverse Reactions: Allergies Allergy/AdvReac Type Severity Reaction Status Date / Time ciprofloxacin [From Cipro] AdvReac Verified 06/04/17 10:39 metronidazole [From Flagyl] AdvReac Verified 06/04/17 10:39 Home Medications: HOME MEDICATIONS Gabapentin [Neurontin] 600 mg PO TID 06/03/17 [Last Taken Unknown] Insulin Glargine,Hum.rec.anlog [Lantus] 30 units SC HS 06/03/17 [Last Taken Unknown] - History of Present Illness Narrative: Patient is here because of recurrent right arm involuntary movement and weakness. the symptoms started a little over a week ago involving mainly his right thumb and then progressed to involve his arm. He was seen in the [place] ER 05/31. He was seen here on 06/[address] and labs, was found to be hyperglycemic and hypernatremic, admitted, stabilized and discharged yesterday. Since discharge he had had six more episode of involuntary movement of his right arm causing him to fall, after falling multiple times he ended up spending the night on the floor so he wouldn't fall again, denies any loss of consciousness with the episodes or otherwise. He also has had progressive weakness in the right arm to where he cannot use it at all. He took his insulin this am Review of Systems - Review of Systems Constitutional: Present: recent illness. Absent: fever EYE: Absent: vision changes Respiratory: Absent: shortness of breath, cough Cardiology: Absent: chest pain Gastrointestinal/Abdominal: Absent: nausea, vomiting Neurological: Present: See HPI - Patient's Past Medical History Patient History - Medical: Diabetes Type 2 Patient History - Cardiac/Respiratory: COPD Patient History - Cancer: No Hx of Cancer Patient History - Surgical Procedures: Total Knee Replacement, Other - angiogram Patient History - Other: None - Family History Father Family History - Medical: , No pertinent hx Family History - Cardiac/Respiratory: Other Family History - Cancer: Other - Social History Living Situations: alone Psych History: Hx of Anxiety, Hx of Depression Smoking Status: Former smoker Alcohol Use: heavy Drug Use: none, marijuana - Immunizations Immunizations Up to Date: No Hx Pneumococcal Vaccination: Yes History of Influenza Vaccine: No Physical Exam - Physical Exam General Appearance: Present: wd/wn, alert, no apparent distress, anxious, obese Eye Exam: Normal inspection: bilateral, PERRL: bilateral, EOMI: bilateral Ears, Nose, Throat: Present: normal ENT inspection, normal pharynx Neck: Present: normal inspection, supple, full range of motion Respiratory: Present: no respiratory distress, normal breath sounds, no accessory muscle use, lungs clear Cardiovascular/Chest: Present: regular rate, rhythm, no murmur Gastrointestinal/Abdominal: Present: nontender, nondistended, soft Extremity Exam: Present: normal inspection Neurological Exam: Present: alert, oriented, normal mood/affect, no motor/ sensory deficits - except right upper extremity, examined after seizure, patient had minimal movement (not against gravity), spareribs trimmer II-XII nml as tested Skin Exam: Present: normal color, warm/dry [place] Coma Scale - Assess Eye Opening: Spontaneous Motor: Obeys Commands Verbal: Oriented - Total Coma Scale Total: 15 ED Progress - Results and Orders Patient's Lab Results:: I have reviewed the patient's lab results. - Vital Signs Patient's Vital Signs:: I have reviewed the patient's vital signs. Vital Signs: Vital Signs 06/04/17 06/04/17 10:33 10:50 Temperature 36.6 C Pulse Rate 89 92 Respiratory 18 18 Rate Blood Pressure 140/74 156/85 O2 Sat by Pulse 98 98 Oximetry - Progress/Reassessment Chief Complaint: Fall Progress Note-Subjective: 06/04/17 11:05 while talking to patient patient states: 'here it comes' and shortly afterwards has a partial seizure involving his right upper extremity and right side of face , patient blinking but able to talk some through it, symptoms lasted about 30 seconds 06/04/17 11:[address] Martinez (neurology) get EEG, start Keppre 750mg IV now, 500mg tonight, go to 500mg po bid tomorrow, follow up in clinic next week in [place] 06/04/17 12:10 discussed plan with patient and sister, they had wanted transfer to [place], but [facility], patient qualifies for inpatient treatment for new focal deficit that is severe and persistent, patient agrees to be treated here, patient states that he had another seizure, 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
[2017-06-04 11:42] LABS: ALT 41 U/L (19-67); Albumin * 2.7 gm/dl (3.4-5.0); Alkaline Phosphatase * 98 U/L (50-170); Anion Gap 10.3 mmol/L (6.8-13.8); BUN/Creatinine Ratio 13.5 (9.0-21.6); Bilirubin, Total 0.4 mg/dL (0.0-1.1); Blood Urea Nitrogen 10 mg/dL (6-23); Ca. Corrected For Albumin 9.6 mg/dL (8.4-10.2); Calcium * 8.9 mg/dL (7.9-10.9); Carbon Dioxide 30.5 mmol/L (24-32.6); Chloride 99 mmol/L (97-106); Glucose * 358 mg/dL (70-110); Potassium 3.8 mmol/L (3.4-4.6); Sodium 136 mmol/L (132-142); Total Protein 6.2 gm/dL (6.2-8.2)
[2017-06-04 12:13] LABS: AST 30 U/L (0-48)
--- OUTSIDE RECORDS SUMMARY | 2017-06-04 12:30 | XMS REPORT | Continuity of Care Document ---
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
--- NOTE | 2017-06-04 20:44 | HP ---
Chief Complaint - Chief Complaint Date of Service: 06/04/17 Time of Service: 20:43 Chief Complaint: seizure-like acivity History of Present Illness: Andi is a 67 [facility] a PMH of non-compliant Diabetes type 2, diabetic neuropathy, history of OK with prior angiogram (no intervention per patient) that presented to the ER tonight with c/o involuntary right arm movements and overall generalized weakness. Patient states that prior to ER he had 6 seizure-like activity of right upper arm that cause involuntary twitching. Patient was discharged yesterday after admission for diabetic non-ketotic hyperosmolar hyperglycermia. 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 Shortly after admission, patient underwent an EEG, which was read by Dr. Martinez ( Neurology) as no epilectal wave forms but muscle twitching was seen. Thus, Dr Martinez recommended one dose of IV keppra tonight and then starting klonopin po in the am with a follow up appointment with him next week. ER serum glucose was 358, significantly improved from 691 at the previous ER visit on 06/01/17. 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 - Patient's Past Medical History Patient History - Medical: Diabetes Type 2, Other - hemichlorea hemiballism Patient History - Cardiac/Respiratory: COPD, Hyperlipidemia, Myocardial Infarction Patient History - Cancer: No Hx of Cancer Patient History - Surgical Procedures: Total Knee Replacement, Other Patient History - Other: None - Family History Father Family History - Medical: , No pertinent hx Family History - Cardiac/Respiratory: Other Family History - Cancer: Other - Social History Living Situations: alone Psych History: Hx of Anxiety, Hx of Depression Smoking Status: Former smoker Have you smoked in the past 12 months: No Do you dip or chew tobacco: No Smoking Stop Date: 08/13/06 Patient requests Smoking Cessation Consult: No Initiate information on Smoking Cessation: No Alcohol Use: heavy Drug Use: marijuana - Immunizations Immunizations Up to Date: No Hx Pneumococcal Vaccination: Yes History of Influenza Vaccine: No Review Of Systems (GEN) - Review of Systems Generalized/Overall Review: Present: Weakness. Absent: Chills, Fever EENTM: Present: No Symptoms Reported Respiratory: Present: No Symptoms Reported Cardiac: Present: No Symptoms Reported Abdominal: Present: No Symptoms Reported Genitourinary: Present: No Symptoms Reported Musculoskeletal: Present: No Symptoms Reported Neurological: Present: Anxiety, Depressed, Emotional Problems, Other - involuntary movement of right arm Skin: Present: No Symptoms Reported Endocrine: Present: No Symptoms Reported Misc: All systems neg except as marked Allergies/Adverse Reactions: Allergies Allergy/AdvReac Type Severity Reaction Status Date / Time ciprofloxacin [From Cipro] AdvReac Hives Verified 06/04/17 13:32 metronidazole [From Flagyl] AdvReac Hives Verified 06/04/17 13:32 Home Medications: HOME MEDICATIONS Gabapentin [Neurontin] 600 mg PO TID 06/03/17 [Last Taken Unknown] Insulin Glargine,Hum.rec.anlog [Lantus] 30 units SC HS 06/03/17 [Last Taken Unknown] Aspirin [Aspirin EC] 243 mg PO HS 06/04/17 [Last Taken Unknown] Exam - Exam Vital Signs: Vital Signs - Last Taken Temp 36.7 C 06/04/17 19:38 Pulse 103 H 06/04/17 19:38 Resp 18 06/04/17 19:38 BP 123/75 06/04/17 19:38 Pulse Ox 97 06/04/17 19:38 Constitutional: Present: Alert, Other - anxious, Looks Older than stated age ENT Exam: Present: hearing grossly normal Eye Exam: bilateral eye: normal inspection Neck: Present: supple Back Exam: Present: normal inspection, no vertebral tenderness Breasts: Present: Exam deferred Respiratory: Present: chest non-tender, lungs clear, normal breath sounds, no respiratory distress, no accessory muscle use Cardiovascular/Chest: Present: normal peripheral pulses, regular rate, rhythm, no chest tenderness, no edema Peripheral Pulses: dorsalis-pedis (R): 2+, dorsalis-pedis (L): 2+, radial (R): 2 +, radial (L): 2+ Abdomen: Present: soft, nontender, nondistended /Rectal: Present: Exam deferred Extremity: Present: non-tender, normal inspection, no calf tenderness Skin Exam: Present: normal color, warm/dry, no cyanosis Neurologic: Present: barrel cleaner II-XII nml as tested, motor weakness - right hand grasp weaker than left, depressed affect Appearance: Present: disheveled Diagnostic Studies: Laboratory Results WBC 4.2 K/mm3 (4.0-10.5) 06/04/17 11:27 RBC 3.82 M/mm3 (4.7-6.0) L 06/04/17 11:27 Hgb 11.9 gm/dL (13.5-18.0) L 06/04/17 11:27 Hct 35.2 % (42.0-52.0) L 06/04/17 11:27 MCV 92.1 fl (78-100) 06/04/17 11:27 MCH 31.2 pg (27-31) H 06/04/17 11:27 MCHC 33.8 g/dl (32-36) 06/04/17 11:27 RDW 14.2 % (11.5-14.0) H 06/04/17 11:27 Plt Count 202 K/mm3 (150-450) 06/04/17 11:27 MPV 9.5 fl (6.0-9.5) 06/04/17 11:27 Immature Gran % (Auto) 0.50 % (0.001-0.429) H 06/04/17 11:27 Immature Gran # (Auto) 0.02 K/mm3 (0.000-0.0310) 06/04/17 11:27 Neutrophils % 64.5 % (42-75.0) 06/04/17 11:27 Lymphocytes % 19.2 % (20-51) L 06/04/17 11:27 Monocytes % 13.1 % (0.0-9) H 06/04/17 11:27 Eosinophils % 1.7 % (0.0-3.0) 06/04/17 11:27 Basophils % 1.0 % (0.0-1.0) 06/04/17 11:27 Nucleated RBC % 0.0 k/mm3 (0-1) 06/04/17 11:27 Neutrophils # 2.7 K/mm3 (1.3-6.0) 06/04/17 11:27 Lymphocytes # 0.8 k/mm3 (1.5-3.5) L 06/04/17 11:27 Monocytes # 0.6 k/mm3 (0.0-1.0) 06/04/17 11:27 Eosinophils # 0.1 k/mm3 (0.0-0.7) 06/04/17 11:27 Absolute Basophils 0.0 k/mm3 (0.0-0.1) 06/04/17 11:27 VBG pH 7.395 (7.32-7.43) 06/04/17 11:27 Sodium 136 mmol/L (132-142) 06/04/17 11:27 Plasma Sodium 140 mmol/L (130-142) 06/04/17 11:27 Potassium 3.8 mmol/L (3.4-4.6) 06/04/17 11:27 Chloride 99 mmol/L (97-106) 06/04/17 11:27 Carbon Dioxide 30.5 mmol/L (24-32.6) 06/04/17 11:27 Anion Gap 10.3 mmol/L (6.8-13.8) 06/04/17 11:27 BUN 10 mg/dL (6-23) D 06/04/17 11:27 Creatinine 0.74 mg/dL (0.4-1.4) 06/04/17 11:27 Est GFR (Non-Af Amer) 112 mL/min (60-130) D 06/04/17 11:27 BUN/Creatinine Ratio 13.5 (9.0-21.6) 06/04/17 11:27 Random Glucose 358 mg/dL (70-110) H D 06/04/17 11:27 Calcium 8.9 mg/dL (7.9-10.9) 06/04/17 11:27 Calcium Adj for Albumin 9.6 mg/dL (8.4-10.2) 06/04/17 11:27 Total Bilirubin 0.4 mg/dL (0.0-1.1) 06/04/17 11:27 AST 30 U/L (0-48) 06/04/17 11:27 ALT 41 U/L (19-67) 06/04/17 11:27 Alkaline Phosphatase 98 U/L (50-170) 06/04/17 11:27 Total Protein 6.2 gm/dL (6.2-8.2) 06/04/17 11:27 Albumin 2.7 gm/dl (3.4-5.0) L 06/04/17 11:27 Serum Ketones Negative (NEGATIVE) 06/04/17 11:27 Assessment/Plan - Narrative Narrative: Diabetes type 2, uncontrolled - continue meds started at last admission - lantus 30 units q hs - amaryl 4 mg bid - accu-checks ac/hs with humalog sliding scale as needed - encourage snack with protein or glucerna shack at bedtime. - hgba1c at last admission = 14 - patient stopped all diabetic meds 2 years ago after Hemichlorea Hemiballism secondary to diabetic nonketotic hyperglycemia - EEG shows no epileptic wave forms - Dr Martinez (neurology) recommends - 1 dose iv keppra tonight - start oral klonopin in am. - uncontrollable movements should improve as glucose control improves. - review of literature shows this can take up to 3-6 months depression - continue meds started at last admission - celexa 20 mg daily - recommend outpatient counseling / therapy High cholesterol with extremely high triglycerides - continue meds started at last admission - lipitor 80 mg daily - start fenofibrate daily to target triglycerides specifically - recommend heart healthy diet / exercise Code status: Full code VTE: lovenox GI proph: protonix. 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
[2017-06-04] MEDS ORDERED: ASPIRIN 81 MG TABLET.DR PO SCH (21:00)
[2017-06-04] MEDS: GABAPENTIN 600 MG TABLET PO SCH (21:03)
[2017-06-04] MEDS: INSULIN LISPRO 100 UNITS/ML VIAL SC SCH (21:04)
[2017-06-04] MEDS: INSULIN GLARGINE,HUM.REC.ANLOG 100 UNITS/ML VIAL SC SCH (21:05)
[2017-06-04] MEDS: ENOXAPARIN SODIUM 40 MG/0.4 ML SYRG SC SCH (21:06)
[2017-06-04] MEDS: ATORVASTATIN CALCIUM 40 MG TABLET PO SCH (22:41)
--- NOTE | 2017-06-05 02:48 | PN ---
Subjective - Date and Time Seen Date: 06/05/17 Time: 02:44 Subjective Narrative: resting comfortably. no involuntary arm movements at this time. Objective - Review of Systems Generalized/Overall Review: Reports: Weakness EENTM: Reports: No Symptoms Reported Respiratory: Reports: No Symptoms Reported Cardiac: Reports: No Symptoms Reported Abdominal: Reports: No Symptoms Reported Genitourinary Symptoms: Reports: No Symptoms Reported Musculoskeletal Complaints: Reports: No Symptoms Reported Neurological: Reports: No Symptoms Reported Skin: Reports: No Symptoms Reported Endocrine: Reports: No Symptoms Reported Misc: All systems neg except as marked - Vitals Vitals: Last Vital Signs Temp 37.2 C 06/04/17 22:25 Pulse 111 H 06/04/17 22:25 Resp 19 06/04/17 22:25 BP 135/62 06/04/17 22:25 Pulse Ox 96 06/04/17 22:25 - Exam Constitutional: Present: Cooperative, No distress, Obese, Looks Older than stated age ENT Exam: Present: hearing grossly normal Neck: Present: supple Breasts: Present: Exam deferred Respiratory: Present: lungs clear, normal breath sounds, no respiratory distress Cardiovascular/Chest: Present: normal peripheral pulses, regular rate, rhythm, no chest tenderness, no JVD Abdomen: Present: soft, nontender, nondistended Extremity: Present: normal range of motion, non-tender, normal inspection, no calf tenderness Skin Exam: Present: normal color, warm/dry, no cyanosis Assessment/Plan Plan Narrative: Diabetes type 2, uncontrolled - continue meds started at last admission - lantus 30 units q hs - amaryl 4 mg bid - accu-checks ac/hs with humalog sliding scale as needed - encourage snack with protein or glucerna shack at bedtime. - hgba1c at last admission = 14 - patient stopped all diabetic meds 2 years ago after - diabetic teaching while admitted Hemichlorea Hemiballism secondary to diabetic nonketotic hyperglycemia - EEG shows no epileptic wave forms - Dr Martinez (neurology) recommends - 1 dose iv keppra - given last night (also received a dose of iv keppra in the ER) - start oral klonopin in am. - uncontrollable movements should improve as glucose control improves. - review of literature shows this can take up to 3-6 months depression - continue meds started at last admission - celexa 20 mg daily - recommend outpatient counseling / therapy High cholesterol with extremely high triglycerides - continue meds started at last admission - lipitor 80 mg daily - fenofibrate daily to target triglycerides specifically - recommend heart healthy diet / exercise - heart healthy diet teaching while admitted. Code status: Full code VTE: lovenox GI proph: protonix. - Problems/Diagnosis (1) Diabetes Problem: Chronic Qualifiers: Diabetes mellitus type: type 2 Diabetes mellitus complication status: with hyperglycemia Diabetes mellitus shelter insulin use: with terminologist use Qualified Code(s): E11.65 - Type 2 diabetes mellitus with hyperglycemia; Z79.4 - assisted (current) use of insulin (2) Elevated cholesterol with high triglycerides Problem: Chronic (3) Hemichorea Problem: Acute (4) Hemiballism Problem: Acute (5) Depression Problem: Chronic Qualifiers: Depression Type: major depressive disorder Major depression recurrence: single episode Active/Remission status: currently active Major depression episode severity: moderate Qualified Code(s): F32.1 - Major depressive disorder, single episode, moderate
[2017-06-05] MEDS: INSULIN LISPRO 100 UNITS/ML VIAL SC SCH ×4 (07:32→20:39)
[2017-06-05] MEDS: PANTOPRAZOLE SODIUM 40 MG TABLET.EC PO SCH (07:40)
[2017-06-05] MEDS ORDERED: levETIRAcetam 500 MG TABLET PO SCH (09:00)
[2017-06-05] MEDS: GLIMEPIRIDE 4 MG TABLET PO SCH ×2 (09:40→17:45)
[2017-06-05] MEDS: CITALOPRAM HYDROBROMIDE 20 MG TABLET PO SCH (09:40)
[2017-06-05] MEDS: clonazePAM 0.5 MG TABLET PO SCH ×3 (09:40→17:51)
[2017-06-05] MEDS: GABAPENTIN 600 MG TABLET PO SCH ×3 (09:41→17:46)
[2017-06-05] MEDS: FENOFIBRATE,MICRONIZED 134 MG CAPSULE PO SCH (09:41)
[2017-06-05] MEDS: ATORVASTATIN CALCIUM 40 MG TABLET PO SCH (09:41)
[2017-06-05] MEDS: SENNOSIDES/DOCUSATE SODIUM 1 TAB TABLET PO SCH ×2 (12:09→20:33)
[2017-06-05] MEDS: ROSUVASTATIN CALCIUM 20 MG TABLET PO SCH (20:31)
[2017-06-05] MEDS: ENOXAPARIN SODIUM 40 MG/0.4 ML SYRG SC SCH (20:32)
[2017-06-05] MEDS: INSULIN GLARGINE,HUM.REC.ANLOG 100 UNITS/ML VIAL SC SCH (20:38)
--- NOTE | 2017-06-06 04:34 | PN ---
Subjective - Date and Time Seen Date: 06/06/17 Time: 04:34 Subjective Narrative: resting comfortably. right arm twitching has significantly decreased over the last 24 hours, per pt. Objective - Review of Systems Generalized/Overall Review: Reports: No Symptoms Reported EENTM: Reports: No Symptoms Reported Respiratory: Reports: No Symptoms Reported Cardiac: Reports: No Symptoms Reported Abdominal: Reports: No Symptoms Reported Genitourinary Symptoms: Reports: No Symptoms Reported Musculoskeletal Complaints: Reports: Joint Pain Neurological: Reports: No Symptoms Reported Skin: Reports: No Symptoms Reported Endocrine: Reports: No Symptoms Reported Misc: All systems neg except as marked - Vitals Vitals: Last Vital Signs Temp 36.9 C 06/06/17 03:57 Pulse 93 06/06/17 03:57 Resp 18 06/06/17 03:57 BP 109/67 06/06/17 03:57 Pulse Ox 97 06/06/17 03:57 - Exam Constitutional: Present: Cooperative, No distress, Looks Older than stated age ENT Exam: Present: hearing grossly normal Neck: Present: supple Breasts: Present: Exam deferred Respiratory: Present: lungs clear, normal breath sounds, no respiratory distress Cardiovascular/Chest: Present: normal peripheral pulses, regular rate, rhythm, no chest tenderness Abdomen: Present: soft, nontender, nondistended /Rectal: Present: Exam deferred Extremity: Present: normal inspection, no calf tenderness Skin Exam: Present: normal color, warm/dry, no cyanosis Assessment/Plan Plan Narrative: Diabetes type 2, uncontrolled - continue meds started at last admission - lantus 30 units q hs - amaryl 4 mg bid - accu-checks ac/hs with humalog sliding scale as needed - encourage snack with protein or glucerna shack at bedtime. - hgba1c at last admission = 14 - patient stopped all diabetic meds 2 years ago after - diabetic teaching while admitted Hemichlorea Hemiballism secondary to diabetic nonketotic hyperglycemia - EEG shows no epileptic wave forms - improving on klonopin po and diabetic meds - uncontrollable movements should continue to improve as glucose control improves. - review of literature shows this can take up to 3-6 months left femur fracture - have contacted [facility] - awaiting to see if they accept pt for possible transfer depression - continue meds started at last admission - celexa 20 mg daily - recommend outpatient counseling / therapy High cholesterol with extremely high triglycerides - continue meds started at last admission - lipitor 80 mg daily - fenofibrate daily to target triglycerides specifically - recommend heart healthy diet / exercise - heart healthy diet teaching while admitted. Code status: Full code VTE: lovenox GI proph: protonix. - Problems/Diagnosis (1) Diabetes Problem: Chronic Qualifiers: Diabetes mellitus type: type 2 Diabetes mellitus complication status: with hyperglycemia Diabetes mellitus nursing home insulin use: with nursing home use Qualified Code(s): E11.65 - Type 2 diabetes mellitus with hyperglycemia; Z79.4 - group home (current) use of insulin (2) Elevated cholesterol with high triglycerides Problem: Chronic (3) Hemichorea Problem: Acute (4) Hemiballism Problem: Acute (5) Depression Problem: Chronic Qualifiers: Depression Type: major depressive disorder Major depression recurrence: single episode Active/Remission status: currently active Major depression episode severity: moderate Qualified Code(s): F32.1 - Major depressive disorder, single episode, moderate (6) Femur fracture, left Problem: Acute Qualifiers: Encounter type: initial encounter Femur location: medial condyle Fracture type: closed Fracture alignment: displaced Qualified Code(s): S72.432A - Displaced fracture of medial condyle of left femur, initial encounter for closed fracture
[2017-06-06 05:30] LABS: Hemoglobin 11.2 gm/dL (13.5-18.0); Mean Cell Volume 93.9 fl (78-100); Mean Corpuscular Hemoglobin 30.9 pg (27-31); Mean Corpuscular Hgb Conc 32.9 g/dl (32-36); Mean Platelet Volume 9.6 fl (6.0-9.5); Platelet Count 202 K/mm3 (150-450); Red Blood Count 3.62 M/mm3 (4.7-6.0); Red Cell Distribution Width 14.2 % (11.5-14.0); White Blood Count 3.7 K/mm3 (4.0-10.5)
[2017-06-06 05:40] LABS: BUN/Creatinine Ratio 13.3 (9.0-21.6); Calcium * 8.8 mg/dL (7.9-10.9); Carbon Dioxide 28.7 mmol/L (24-32.6); Estimated Creat Clear 138.9; Potassium 3.7 mmol/L (3.4-4.6)
[2017-06-06] MEDS: PANTOPRAZOLE SODIUM 40 MG TABLET.EC PO SCH (07:26)
[2017-06-06] MEDS: INSULIN LISPRO 100 UNITS/ML VIAL SC SCH ×4 (07:26→21:25)
[2017-06-06] MEDS: FENOFIBRATE,MICRONIZED 134 MG CAPSULE PO SCH (09:42)
[2017-06-06] MEDS: CITALOPRAM HYDROBROMIDE 20 MG TABLET PO SCH (09:42)
[2017-06-06] MEDS: SENNOSIDES/DOCUSATE SODIUM 1 TAB TABLET PO SCH ×2 (09:43→21:05)
[2017-06-06] MEDS: GLIMEPIRIDE 4 MG TABLET PO SCH ×2 (09:43→17:15)
[2017-06-06] MEDS: GABAPENTIN 600 MG TABLET PO SCH ×3 (09:43→17:16)
[2017-06-06] MEDS: ASPIRIN 325 MG TABLET.DR PO SCH (09:43)
[2017-06-06] MEDS: clonazePAM 0.5 MG TABLET PO SCH ×3 (09:46→17:15)
[2017-06-06] MEDS: POLYETHYLENE GLYCOL 3350 119 GM BTL PO SCH (10:47)
[2017-06-06] MEDS ORDERED: BISACODYL 5 MG TABLET.DR PO ONE (20:32)
[2017-06-06] MEDS: ROSUVASTATIN CALCIUM 20 MG TABLET PO SCH (20:59)
[2017-06-06] MEDS: ENOXAPARIN SODIUM 40 MG/0.4 ML SYRG SC SCH (21:00)
[2017-06-06] MEDS: INSULIN GLARGINE,HUM.REC.ANLOG 100 UNITS/ML VIAL SC SCH (21:25)
[2017-06-07] MEDS: PANTOPRAZOLE SODIUM 40 MG TABLET.EC PO SCH (07:21)
[2017-06-07] MEDS: INSULIN LISPRO 100 UNITS/ML VIAL SC SCH ×4 (07:23→20:35)
--- NOTE | 2017-06-07 07:39 | PN ---
Subjective - Date and Time Seen Date: 06/07/17 Time: 06:00 Subjective Narrative: Patient seen and examined at bedside. No acute issues overnight. No new right upper extremity events. The patient denies any new issues or concerns this AM. Objective - Review of Systems Generalized/Overall Review: Reports: Weakness, Fatigue. Denies: Fever EENTM: Reports: No Symptoms Reported Respiratory: Reports: No Symptoms Reported Cardiac: Reports: No Symptoms Reported Abdominal: Reports: No Symptoms Reported Genitourinary Symptoms: Reports: No Symptoms Reported Musculoskeletal Complaints: Reports: Other - Left knee pain Neurological: Reports: Depressed Skin: Reports: No Symptoms Reported Endocrine: Reports: No Symptoms Reported Misc: All systems neg except as marked - Vitals Vitals: Last Vital Signs Temp 36.5 C 06/07/17 06:56 Pulse 92 06/07/17 06:56 Resp 18 06/07/17 06:56 BP 123/72 06/07/17 06:56 Pulse Ox 94 06/07/17 06:56 - Exam Constitutional: Present: Alert, Oriented x3, Cooperative, No distress ENT Exam: Present: hearing grossly normal, moist mucous membranes Respiratory: Present: lungs clear, normal breath sounds, no respiratory distress , no accessory muscle use Cardiovascular/Chest: Present: regular rate, rhythm, edema - Treatment edema in bilateral lower Abdomen: Present: soft, nontender, nondistended, hypoactive Extremity: Present: other - Left knee pain with tenderness to palpation over the superior medial aspect of knee, left knee swelling also noted on exam Skin Exam: Present: normal color, warm/dry, no cyanosis Neurologic: Present: alert, oriented x 3, depressed affect Eye contact: Present: cooperative Thoughts: Present: no apparent hallucination Assessment/Plan Plan Narrative: -No BM since admission. Continue scheduled Senna-S BID, miralax daily and give milk of mag today; hold for loose stools. -BG improved and well controlled on current regimen. -Right knee x-ray from 06/05/2017 shows a minimally displaced fracture involving the medial left femoral condyle. Patient is status post left knee TKA in 2000 at [facility] [place], [place]. The patient will likely need cardiac clearance prior to any surgery and I will NOT clear him for surgery secondary to his severely uncontrolled type 2 diabetes with a recent hemoglobin A1c of 14.5% and his severely uncontrolled hyperlipidemia. Of note, when his blood has been drawn here in the hospital, the vials of blood have a very milky appearance due to lipemia (high concentration of lipids/fats in the blood). I discussed the patient's case with the on-call physician at the [facility] in [place] and they requested further imaging prior to making a decision on whether or not the patient needed to be transferred. Imaging was obtained yesterday evening. I received a call from the on-call orthopedic physician at the [facility] this morning and he stated that the patient did not need to be transferred but they will have him follow up with Ortho at the [facility] in the near future. They instructed to put the patient in a hinged walking knee brace that is to be kept locked into extension with the patient is ambulating and he is to be weightbearing with toe-touch only on the left and they recommended the patient use a walker while ambulating. When the patient is not ambulating, the knee brace can be unlocked and the patient is encouraged to go through full range of motion of the left knee has tolerated at least 3-4 times per day. -The patient states that he is unable to take care of himself safely at home because he lives alone. I appreciate the assistance of the mental health case manager with helping with discharge planning. Once is a discharge plan is in place, we will need to call the [facility] in [place] to give them a phone number where the patient can be reached at so they can schedule a follow-up appointment. -Patient is medically stable for discharge once a safe discharge plan is in place. - Problems/Diagnosis (1) Femur fracture, left Problem: Acute Qualifiers: Encounter type: initial encounter Femur location: medial condyle Fracture type: closed Fracture alignment: displaced Qualified Code(s): S72.432A - Displaced fracture of medial condyle of left femur, initial encounter for closed fracture (2) Hemichorea Problem: Acute (3) Elevated cholesterol with high triglycerides Problem: Chronic (4) Hemiballism Problem: Acute (5) Uncontrolled type 2 DM with hyperosmolar nonketotic hyperglycemia Problem: Acute (6) Depression Problem: Chronic Qualifiers: Depression Type: major depressive disorder Major depression recurrence: single episode Active/Remission status: currently active Major depression episode severity: moderate Qualified Code(s): F32.1 - Major depressive disorder, single episode, moderate (7) Non compliance w medication regimen Problem: Chronic
[2017-06-07] MEDS ORDERED: MAGNESIUM HYDROXIDE 30 ML UDC PO ONE (07:43)
[2017-06-07] MEDS: SENNOSIDES/DOCUSATE SODIUM 1 TAB TABLET PO SCH ×2 (09:15→20:34)
[2017-06-07] MEDS: POLYETHYLENE GLYCOL 3350 119 GM BTL PO SCH (09:15)
[2017-06-07] MEDS: clonazePAM 0.5 MG TABLET PO SCH ×3 (09:16→16:35)
[2017-06-07] MEDS: FENOFIBRATE,MICRONIZED 134 MG CAPSULE PO SCH (09:16)
[2017-06-07] MEDS: GLIMEPIRIDE 4 MG TABLET PO SCH ×2 (09:16→16:35)
[2017-06-07] MEDS: ASPIRIN 325 MG TABLET.DR PO SCH (09:16)
[2017-06-07] MEDS: CITALOPRAM HYDROBROMIDE 20 MG TABLET PO SCH (09:16)
[2017-06-07] MEDS: GABAPENTIN 600 MG TABLET PO SCH ×3 (09:16→16:36)
[2017-06-07] MEDS: ROSUVASTATIN CALCIUM 20 MG TABLET PO SCH (20:34)
[2017-06-07] MEDS: ENOXAPARIN SODIUM 40 MG/0.4 ML SYRG SC SCH (20:34)
[2017-06-07] MEDS: INSULIN GLARGINE,HUM.REC.ANLOG 100 UNITS/ML VIAL SC SCH (20:36)
[2017-06-08] MEDS: INSULIN LISPRO 100 UNITS/ML VIAL SC SCH ×4 (07:47→21:13)
[2017-06-08] MEDS: PANTOPRAZOLE SODIUM 40 MG TABLET.EC PO SCH (07:48)
[2017-06-08] MEDS: clonazePAM 0.5 MG TABLET PO SCH ×3 (09:46→17:19)
[2017-06-08] MEDS: SENNOSIDES/DOCUSATE SODIUM 1 TAB TABLET PO SCH ×2 (09:46→20:59)
[2017-06-08] MEDS: GLIMEPIRIDE 4 MG TABLET PO SCH ×2 (09:46→17:18)
[2017-06-08] MEDS: POLYETHYLENE GLYCOL 3350 119 GM BTL PO SCH (09:47)
[2017-06-08] MEDS: ASPIRIN 325 MG TABLET.DR PO SCH (09:47)
[2017-06-08] MEDS: FENOFIBRATE,MICRONIZED 134 MG CAPSULE PO SCH (09:47)
[2017-06-08] MEDS: CITALOPRAM HYDROBROMIDE 20 MG TABLET PO SCH (09:47)
[2017-06-08] MEDS: GABAPENTIN 600 MG TABLET PO SCH ×3 (09:47→17:17)
--- NOTE | 2017-06-08 10:30 | PN ---
Subjective - Date and Time Seen Date: 06/08/17 Time: 09:30 Subjective Narrative: Patient seen and examined at bedside. No acute issues overnight. No new right upper extremity events. Left knee pain adequately controlled. Patient had a BM yesterday evening and another one this morning and states that he is feeling much better. The patient denies any new issues or concerns this AM. Objective - Review of Systems Generalized/Overall Review: Reports: No Symptoms Reported EENTM: Reports: No Symptoms Reported Respiratory: Reports: No Symptoms Reported Cardiac: Reports: No Symptoms Reported Abdominal: Reports: No Symptoms Reported Genitourinary Symptoms: Reports: No Symptoms Reported Musculoskeletal Complaints: Reports: Joint Pain - Left knee pain well-controlled Neurological: Reports: Depressed Endocrine: Reports: No Symptoms Reported Misc: All systems neg except as marked - Vitals Vitals: Last Vital Signs Temp 36.5 C 06/08/17 02:45 Pulse 90 06/08/17 02:45 Resp 20 06/08/17 02:45 BP 137/76 06/08/17 02:45 Pulse Ox 94 06/08/17 02:45 - Exam Constitutional: Present: Alert, Oriented x3, Cooperative, No distress ENT Exam: Present: hearing grossly normal, moist mucous membranes Respiratory: Present: lungs clear, normal breath sounds, no respiratory distress , no accessory muscle use Cardiovascular/Chest: Present: regular rate, rhythm, edema - Trace edema in bilateral lower extremities Abdomen: Present: soft, nontender, nondistended Extremity: Present: other - Hinged, locking knee brace in place on left. Left knee tenderness to palpation over the superior medial aspect of knee, left knee swelling also noted on exam. Skin Exam: Present: normal color, warm/dry, no cyanosis Neurologic: Present: alert, oriented x 3, depressed affect - Although markedly improved since patient was first admitted over a week ago. Eye contact: Present: cooperative, good eye contact, normal speech Thoughts: Present: normal thought pattern, no apparent hallucination Assessment/Plan Plan Narrative: -Patient had BM evening of 06/07/2017 and again a.m. of 06/08/2017. Continue scheduled Senna-S BID and miralax daily; hold for loose stools. -BG markedly improved and adequately controlled on current regimen. -Right knee x-ray from 06/05/2017 shows a minimally displaced fracture involving the medial left femoral condyle. Patient is status post left knee TKA in 2000 at the [facility] in [place], [place]. The patient will likely need cardiac clearance prior to any surgery and I will NOT clear him for surgery secondary to his severely uncontrolled type 2 diabetes with a recent hemoglobin A1c of 14.5% and his severely uncontrolled hyperlipidemia. Of note, when his blood has been drawn here in the hospital, the vials of blood have a very milky appearance due to lipemia (high concentration of lipids/fats in the blood). I discussed the patient's case with the on-call physician at the [facility] in [place] and they requested further imaging prior to making a decision on whether or not the patient needed to be transferred. Imaging was obtained yesterday evening. I received a call from the on-call orthopedic physician at the [facility] this morning and he stated that the patient did not need to be transferred but they will have him follow up with Ortho at the [facility] in the near future. They instructed to put the patient in a hinged walking knee brace that is to be kept locked into extension with the patient is ambulating and he is to be weightbearing with toe-touch only on the left and they recommended the patient use a walker while ambulating. When the patient is not ambulating, the knee brace can be unlocked and the patient is encouraged to go through full range of motion of the left knee has tolerated at least 3-4 times per day. -The patient states that he is unable to take care of himself safely at home because he lives alone. I appreciate the assistance of the correctional case records supervisor with helping with discharge planning. Once is a discharge plan is in place, we will need to call the [facility] in [place] to give them a phone number where the patient can be reached at so they can schedule a follow-up appointment. -Patient is medically stable for discharge once a safe discharge plan is in place. 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
[2017-06-08] MEDS: ENOXAPARIN SODIUM 40 MG/0.4 ML SYRG SC SCH (20:59)
[2017-06-08] MEDS: ROSUVASTATIN CALCIUM 20 MG TABLET PO SCH (20:59)
[2017-06-08] MEDS: INSULIN GLARGINE,HUM.REC.ANLOG 100 UNITS/ML VIAL SC SCH (21:12)
[2017-06-09] MEDS: INSULIN LISPRO 100 UNITS/ML VIAL SC SCH ×2 (07:25→12:26)
[2017-06-09] MEDS: PANTOPRAZOLE SODIUM 40 MG TABLET.EC PO SCH (07:26)
[2017-06-09] MEDS: POLYETHYLENE GLYCOL 3350 119 GM BTL PO SCH (09:28)
[2017-06-09] MEDS: FENOFIBRATE,MICRONIZED 134 MG CAPSULE PO SCH (09:33)
[2017-06-09] MEDS: clonazePAM 0.5 MG TABLET PO SCH ×2 (09:33→12:26)
[2017-06-09] MEDS: SENNOSIDES/DOCUSATE SODIUM 1 TAB TABLET PO SCH (09:33)
[2017-06-09] MEDS: ASPIRIN 325 MG TABLET.DR PO SCH (09:34)
[2017-06-09] MEDS: GLIMEPIRIDE 4 MG TABLET PO SCH (09:34)
[2017-06-09] MEDS: CITALOPRAM HYDROBROMIDE 20 MG TABLET PO SCH (09:34)
[2017-06-09] MEDS: GABAPENTIN 600 MG TABLET PO SCH ×2 (09:34→12:26)
--- NOTE | 2017-06-09 09:36 | DS ---
(1) Femur fracture, left Problem: Acute Qualifiers: Encounter type: initial encounter Femur location: medial condyle Fracture type: closed Fracture alignment: displaced Qualified Code(s): S72.432A - Displaced fracture of medial condyle of left femur, initial encounter for closed fracture (2) Hemichorea Problem: Acute (3) Hemiballism Problem: Acute (4) Uncontrolled type 2 DM with hyperosmolar nonketotic hyperglycemia Problem: Acute (5) Depression Problem: Chronic Qualifiers: Depression Type: major depressive disorder Major depression recurrence: single episode Active/Remission status: currently active Major depression episode severity: moderate Qualified Code(s): F32.1 - Major depressive disorder, single episode, moderate (6) Non compliance w medication regimen Problem: Chronic (7) Elevated cholesterol with high triglycerides Problem: Chronic Description of Stay: ADMISSION DATE: 06/04/2017 DISCHARGE DATE: 06/09/2017 ADMISSION HPI BY LOYD YOUNG: Andi is a 67 year old male patient of the [facility] with a PMH of non-compliant Diabetes type 2, diabetic neuropathy, history of NH with prior angiogram (no intervention per patient) that presented to the ER tonight with c/o involuntary right arm movements and overall generalized weakness. Patient states that prior to ER he had 6 seizure-like activity of right upper arm that cause involuntary twitching. Patient was discharged yesterday after admission for diabetic non-ketotic hyperosmolar hyperglycermia. 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 Shortly after admission, patient underwent an EEG, which was read by Dr. Martinez ( Neurology) as no epilectal wave forms but muscle twitching was seen. Thus, Dr Martinez recommended one dose of IV keppra tonight and then starting klonopin po in the am with a follow up appointment with him next week. ER serum glucose was 358, significantly improved from 691 at the previous ER visit on 06/01/17. 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 HOSPITAL COURSE: The patient presented back to the [facility] emergency department less than 24 hours after being discharged from the hospital. The patient presented via ambulance to the emergency department for ongoing episodes of abnormal movements of the right upper extremity and inability to take care of himself at home. The emergency department physician felt that the patient was having partial seizures so he was admitted for further evaluation and management. EEG was performed shortly after admission and I discussed the EEG results with the on- call neurologist, Dr. Martinez. Per Dr. Martinez, the EEG showed some twitching but there were no epileptic waveforms noted. Dr. Martinez recommended giving a final dose of IV Keppra the night of 06/04/2017 and then no further keppra and instead start Klonopin 0.5mg PO TID. 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 Unfortunately, the patient is unable to have a brain MRI secondary to having multiple BBs in his head. I discussed with the patient that it could take months for the patient's right upper extremity symptoms to resolve. The bartlett treatment will be blood glucose control. The patient was started on Klonopin on 06/05/2017 and the patient had not had any abnormal movements of his right upper extremity for at least 48 hours prior to discharge. The patient may benefit from referral to a neurologist but I will defer to his PCP through the [facility] to decide whether or not he feels this is necessary. The patient had multiple falls at home and on 06/05/2017, the patient complained of ongoing left knee pain and swelling so a left knee x-ray was ordered which showed a minimally displaced fracture of the medial femoral condyle. The patient is status post left knee TKA in 2000 at the [facility] in [place], [place]. The patient will likely need cardiac clearance prior to any surgery and I will NOT clear him for surgery secondary to his severely uncontrolled type 2 diabetes with a recent hemoglobin A1c of 14.5% and his severely uncontrolled hyperlipidemia. Of note, when his blood has been drawn here in the hospital, the vials of blood have a very milky appearance due to lipemia (high concentration of lipids/fats in the blood). I discussed the patient's case with the on-call physician (both the hospitalist and later with ortho) at the [facility] in [place] and they requested further imaging prior to making a decision on whether or not the patient needed to be transferred. Imaging was obtained as requested by the [facility]. I spoke to the on-call orthopedic physician at the [facility] the morning of 06/06/2017 and he stated that the patient did not need to be transferred but they will have him follow up with Ortho at the [facility] in the near future. They instructed to put the patient in a hinged walking knee brace that is to be kept locked into extension when the patient is ambulating and he is to be weight-bearing with toe-touch only on the left and they recommended the patient use a walker while ambulating. When the patient is not ambulating, the knee brace can be unlocked and the patient is encouraged to go through full range of motion of the left knee has tolerated at least 3-4 times per day. Also has documented during his previous admission, the patient admits to as well as displays signs and symptoms of fairly profound depression. The patient would benefit from outpatient therapy and/or ongoing evaluation and management by psychiatry. I will defer to the patients primary care provider through the [facility] to make this referral if he feels it is appropriate. For now, the patient is agreeable to starting an antidepressant and I started him on Citalopram 20mg PO daily. The patient was informed that it can take anywhere from 2-4 weeks before noticing any changes. Of note, the patient does state that his depression and overall mood has improved since he was first admitted. Follow-up appointments through the [facility] with both his primary care provider as well as Ortho have been scheduled as documented below. Home health care services through the [facility] are being arranged/set up. FOLLOW-UP APPOINTMENTS: -PCP at the [facility] in [place], [place] on 06/04/2017 at 2:30 PM -Ortho at the [facility] in [place] on 06/10/2017 at 1:00 PM NEW OR CHANGED MEDICATIONS: -Aspirin 325mg PO daily -Atorvastatin 80mg PO daily -Citalopram 20mg PO daily -Glimepiride 4mg PO BID with meals -Clonazepam 0.5mg PO TID DISCONTINUED MEDICATIONS: -None RADIOLOGY REPORTS: Three-view left knee x-ray on 06/05/2017 showed: Previous total knee replacement. Minimally displaced fracture involving the medial femoral condyle. Two-view AP and lateral left femur x-ray on 06/05/2017 showed: Diffuse osteopenia. Previous left total knee replacement. Vertical fracture involving the distal medial femoral condyle with minimal displacement. Two-view x-ray of the left tibia/fibula on 06/05/2017 showed: Mild diffuse osteopenia. No definable acute osseous abnormality. CT scan of the left knee without contrast on 06/05/2017 showed: Previous total knee replacement with associated metallic streak artifact. Vertical fracture involving the medial condyle of the distal left femur; the distal aspect of the fracture is not visualized due to metallic streak artifact. No additional fractures identified. Soft tissue swelling overlying the anterior aspect of the knee and fluid in the supra patella bursa. Procedures Performed: none Discharge Disposition: Home self care - Home with [facility] Disposition: Home self-care Condition: Stable Discharge Activity: Other - Hinged walking knee brace is to be kept locked into extension when the patient is ambulating and he is to be weight-bearing with toe -touch only on the left and use a walker while ambulating. When the patient is not ambulating, the knee brace can be unlocked and the patient is encouraged to go through full range of motion of the left knee has tolerated at least 3-4 times per day. Discharge Diet: Consistent carbs, Other - Heart Healthy, Diabetic Diet Additional Patient Instructions (free text): F/U WITH ORTHO AT [facility] 06/15/17 AT 12:20PM. F/U WITH YOUR PCP AT THE [facility] IN [place] 06/14/17 AT 2:30PM. Please fax D/C summary and medication list to the [facility] at [phone]. Prescriptions (Any new or edited meds): Aspirin [Aspirin Enteric Coated] 325 mg PO DAILY #30 tablet. Atorvastatin Calcium 80 mg PO HS #30 tablet Insulin Glargine,Hum.rec.anlog [Lantus] 30 units SC HS #3 vial clonazePAM [Klonopin] 0.5 mg PO TID #90 tablet Complete Home Medications List: Complete Home Medication List: Gabapentin [Neurontin] 600 mg PO TID 06/03/17 Aspirin [Aspirin Enteric Coated] 325 mg PO DAILY #30 tablet. 06/09/17 Atorvastatin Calcium 80 mg PO HS #30 tablet 06/09/17 Citalopram Hydrobromide [Celexa] 20 mg PO DAILY tablet 06/09/17 Glimepiride [Amaryl] 4 mg PO BIDWM tablet 06/09/17 Insulin Glargine,Hum.rec.anlog [Lantus] 30 units SC HS #3 vial 06/09/17 clonazePAM [Klonopin] 0.5 mg PO TID #90 tablet 06/09/17
[2017-06-09 11:30] VITALS: BP 120/78
== END 2017-06-09 13:04 | disposition home health service (06) | DRG 638 ==
LOC: ER 10:29 → MS 12:25
PROVIDERS: ADMIT Internal Medicine; ATTEND Internal Medicine
PROC: 4A033R1 Measurement of Arterial Saturation, Peripheral, Percutaneous Approach (ICD-10-PCS; principal; 2017-06-04)
DX: E11.65 Type 2 diabetes mellitus with hyperglycemia (principal); F32.1 Major depressive disorder, single episode, moderate; S72.432A Displaced fracture of medial condyle of left femur, initial encounter for closed fracture; W19.XXXA Unspecified fall, initial encounter; Y92.9 Unspecified place or not applicable; G25.5 Other chorea; R25.3 Fasciculation; R53.1 Weakness; E11.40 Type 2 diabetes mellitus with diabetic neuropathy, unspecified; Z79.4 Long term (current) use of insulin; Z87.891 Personal history of nicotine dependence